=== PATIENT | male | born 1960 | race American Indian/Alaskan Native ===

== ENCOUNTER 2017-06-26 08:56 | Emergency (ER) | payer SELFPAY ==
[2017-06-26 09:04] VITALS: BP 105/60
--- NOTE | 2017-06-26 09:30 | XRay Report ---
RIGHT HAND, 3 views: History: Pain, swelling, injury No comparison. There is normal bone mineralization. A comminuted fracture of the fifth metacarpal neck is identified with 55 degrees anterior angulation. No calcified callus is identified at the fracture site consistent with a relatively acute injury. The remaining bony structures in the right hand are intact. Normal joint spaces. There is diffuse soft tissue swelling. IMPRESSION: Angulated fifth metacarpal neck fracture. Consultation with orthopedics is recommended.
[2017-06-26] MEDS ORDERED: TYLENOL PO ONE (11:02)
--- NOTE | 2017-06-26 11:05 | Emergency Department Report ---
Upper Extremity - HPI Chief Complaint: Extremity Injury, Upper Stated Complaint: RIGHT HAND INJURY Time Seen by Provider: 06/26/17 11:00 Upper Extremity: Right Hand Occurred When: 4 Days Mechanism: Crush Severity: moderate Symptoms: Yes Pain with Movement, Yes Deformity, Yes Limited Range of Movement, Yes Swelling, Yes Bruising/Ecchymosis, No Numbness, No Weakness, No Laceration or Abrasion Other History: 56-year-old male past medical history presents with complaint of right hand pain status post mechanical accident while at home. Patient states she was moving a washing machine tried to lift it and washing machine fell onto his right hand. This occurred 4 days ago. Denies any lacerations or other injuries. Patient states that his right hand is swollen and he has difficulty moving his right pinky finger. Patient is fully lucid denies any head injuries is ambulatory. States he does have sensation in hand. ED Review of Systems ROS: Stated complaint: RIGHT HAND INJURY Other details as noted in HPI Constitutional: denies: chills, fever Eyes: denies: eye pain, eye discharge, vision change ENT: denies: ear pain, throat pain Respiratory: denies: cough, shortness of breath, wheezing Cardiovascular: denies: chest pain, palpitations Endocrine: no symptoms reported Gastrointestinal: denies: abdominal pain, nausea, diarrhea Genitourinary: denies: urgency, dysuria Musculoskeletal: as per HPI. denies: back pain, joint swelling, arthralgia Skin: denies: rash, lesions Neurological: denies: headache, weakness, paresthesias Psychiatric: denies: anxiety, depression Hematological/Lymphatic: denies: easy bleeding, easy bruising ED Past Medical Hx - Past Medical History Previous Medical History?: Yes Hx Diabetes: Yes (borderline) - Surgical History Past Surgical History?: Yes Additional Surgical History: Rotator cuff surgery - Social History Smoking Status: Current Every Day Smoker Substance Use Type: Alcohol - Medications Home Medications: Home Medications Medication Instructions Recorded Confirmed Last Taken Type HYDROcodone/APAP 7.5-325 [[place] 1 each PO Q6HR PRN #20 tablet 10/04/13 Unknown Rx 7.5/325 mg] Ibuprofen [Motrin] 800 mg PO TID PRN #60 tablet 10/04/13 Unknown Rx Ciprofloxacin HCl [Cipro] 500 mg PO Q12H #14 tab 04/13/14 Unknown Rx Ibuprofen [Motrin] 800 mg PO Q8H #30 tablet 04/13/14 Unknown Rx methOCARBAMOL [Robaxin] 500 mg PO BID #30 tab 04/13/14 Unknown Rx traMADol [Ultram 50 MG tab] 50 mg PO Q6HR PRN #20 tablet 04/13/14 Unknown Rx Acetaminophen [Acetaminophen TAB] 500 mg PO Q6HR PRN #25 tablet 06/26/17 Unknown Rx HYDROcodone/APAP 5-325 [[place] 1 each PO Q6HR PRN #15 tablet 06/26/17 Unknown Rx 5/325] Upper Extremity Exam - Exam General: Vital signs noted. No distress. Alert and acting appropriately. Head and Torso: No HEENT Abnormality, No Neck Tenderness, No Chest/Lungs Abnormality, No Abdominal Tenderness, No Back Tenderness Shoulder Exam: Yes Normal Range of Motion in Shoulder, No Shoulder Tenderness, No Clavicle Tenderness, No Shoulder Deformity, No AC Joint Tenderness Arm Exam: No Arm/Humerus Tenderness, No Arm Deformity Elbow: No Elbow Tenderness, No Normal Range of Motion in Elbow, No Elbow Deformity Forearm: No Forearm Tenderness, No Forearm Deformity, No Pain with Pronation, No Pain with Supination Wrist: Yes Normal ROM in Wrist (wrist flexion and extension intact, there is no snuffbox tenderness), No Wrist Tenderness, No Wrist Deformity, No Snuffbox Tenderness, No Pain with Axial Thumb Compression Hand: Yes Hand Tenderness, Yes Normal ROM in Digit(s) (pain at distal fifth metacarpal right hand), No Hand Deformity, No Digit Tenderness, No Digit(s) Deformity, No Tendon Dysfunction CMS Exam: Yes Normal Distal Pulses (distal radial and brachial pulses strong to palpation), Yes Normal Capillary Refill ([place] refill less than one second all finger), Yes Normal Distal Sensation, No Broken Skin Hand L/R Back: 1 - Pain and swelling here ED Course Vital Signs 06/26/17 08:59 Temperature 98.4 F Pulse Rate 76 Respiratory 16 Rate Blood Pressure 105/60 O2 Sat by Pulse 96 Oximetry ED Medical Decision Making - Medical Decision Making A/P: Right distal fifth metacarpal fracture, comminuted 1-case discussed with Dr. Ahn who also reviewed x-ray with me 2-patient placed in ulnar gutter splint and referred to orthopedics. I stressed the importance of follow-up with orthopedics to mitigate any long-term injury to right hand or disability of right hand. Patient stated he understood my instructions 3-follow-up with orthopedics 4- right hand neurovascularly intact. Short course Motrin and [place] when necessary Critical care attestation.: If time is entered above; I have spent that time in minutes in the direct care of this critically ill patient, excluding procedure time. ED Disposition Clinical Impression: Closed right hand fracture Qualifiers: Encounter type: initial encounter Qualified Code(s): S62.91XA - Unspecified fracture of right wrist and hand, initial encounter for closed fracture Disposition: TO HOME OR SELFCARE Is pt being admited?: No Does the pt Need Aspirin: No Condition: Stable Instructions: Hand Fracture (ED), Boxer Fracture (ED) Prescriptions: Acetaminophen [Acetaminophen TAB] 500 mg PO Q6HR PRN #25 tablet PRN Reason: Pain HYDROcodone/APAP 5-325 [[place] 5/325] 1 each PO Q6HR PRN #15 tablet PRN Reason: Pain Referrals: JAVY AUSTIN MD [Staff Physician] - 3-5 Days [facility] [Provider Group] - 3-5 Days Forms: Work/School Release Form(ED) Time of Disposition: 11:05
== END 2017-06-26 11:30 | disposition home or self-care (01) ==
LOC: ED 08:56
DX: S62.91XA Unspecified fracture of right hand, initial encounter for closed fracture (principal); F17.200 Nicotine dependence, unspecified, uncomplicated; X58.XXXA Exposure to other specified factors, initial encounter; Y93.89 Activity, other specified; Y92.89 Other specified places as the place of occurrence of the external cause; Y99.8 Other external cause status

== ENCOUNTER 2019-07-06 17:47 | Emergency (ER) | payer SELFPAY ==
[2019-07-06] MEDS ORDERED: ALBUTEROL 2.5 MG/3 ML NEBU IH ONE ×3 (18:04→19:17)
[2019-07-06] MEDS ORDERED: IPRATROPIUM 0.02% NEBU 2.5 ML IH ONE ×2 (18:04→18:19)
[2019-07-06] MEDS ORDERED: KETOROLAC 30 MG/1 ML INJ IV ONE (19:17)
[2019-07-06] MEDS ORDERED: methylPREDNISolone Sod Succinate 125 MG/2 ML INJ IV ONE (19:17)
[2019-07-06] MEDS ORDERED: EPINEPHrine/PF (1:1,000) 1 MG/1 ML INJ SUB-Q ONE (19:18)
[2019-07-06] MEDS ORDERED: MAGNESIUM SULFATE 2 GM/50 ML BAG IV ONE (19:18)
[2019-07-06] MEDS ORDERED: ACETAMINOPHEN 325 MG TAB PO ONE (19:18)
[2019-07-06] MEDS ORDERED: SODIUM CHLORIDE 0.9% 500 ML 500 ML IV ONE (19:18)
--- NOTE | 2019-07-06 19:19 | Emergency Department Report ---
ED General Adult HPI - General Chief complaint: Dyspnea/Respdistress Stated complaint: COPD Time Seen by Provider: 07/06/19 18:24 Source: patient, RN notes reviewed Mode of arrival: Ambulatory Limitations: No Limitations - History of Present Illness Initial comments: The patient is a 58-year-old gentleman. He is not known to myself previously. He has a history of COPD, diagnosed a few years ago when he was with the [facility]. He is not currently with a [facility] now. He smokes a few cigarettes every week. Down from multiple packs. He presents to the ER today with a complaint of cough, wheezing, shortness of breath, lower back pain. He denies DVT and pulmonary embolism risk factors. He denies fever, and exposure to individuals with confirmed coronavirus. He has aching throbbing paraspinal lower back pain which does not radiate anywhere. There is no complaint of bladder or bowel retention or incontinence, there is no complaint of saddle anesthesia, and there is no complaint of chest pain. Symptoms present for the past few days, constant, do not radiate anywhere, worsened with physical exertion and decreased with rest and with position. -: Gradual, days(s) Severity scale (0 -10): 9 Consistency: other Improves with: other Worsens with: other Associated Symptoms: shortness of breath, weakness, other - Related Data Previous Rx's Medication Instructions Recorded Last Taken Type Ibuprofen [Motrin] 800 mg PO TID PRN #60 tablet 10/04/13 Unknown Rx Ibuprofen [Motrin] 800 mg PO Q8H #30 tablet 04/13/14 Unknown Rx Acetaminophen [Acetaminophen TAB] 500 mg PO Q6HR PRN #25 tablet 06/26/17 Unknown Rx Acetaminophen [Non-Aspirin Extra 500 mg PO Q6HR PRN #30 tablet 07/06/19 Unknown Rx Strength] Albuterol Sulfate [Proair 90 mcg IH Q4HR PRN #2 aer.pow.ba 07/06/19 Unknown Rx Respiclick] DOXYCYCLINE Hyclate [Vibramycin] 100 mg PO Q12HR #10 capsule 07/06/19 Unknown Rx Fluticasone [Flonase] 1 spray NS QDAY #1 bottle 07/06/19 Unknown Rx Ibuprofen [Motrin] 600 mg PO Q8H PRN #30 tablet 07/06/19 Unknown Rx Ipratropium (Nf) [Atrovent] 2 puff IH Q6HR PRN #1 inha 07/06/19 Unknown Rx Nicotine Polacrilex [Nicotine Gum] 4 mg BC QDAY #30 gum 07/06/19 Unknown Rx predniSONE [Deltasone] 40 mg PO QDAY #8 tab 07/06/19 Unknown Rx Allergies Allergy/AdvReac Type Severity Reaction Status Date / Time No Known Allergies Allergy Verified 04/13/14 09:41 ED Review of Systems ROS: Stated complaint: COPD Other details as noted in HPI Constitutional: malaise. denies: fever Eyes: denies: eye discharge ENT: congestion Respiratory: cough, wheezing Cardiovascular: denies: syncope Gastrointestinal: denies: abdominal pain Genitourinary: denies: dysuria Musculoskeletal: back pain, arthralgia, myalgia Skin: as per HPI Neurological: as per HPI, weakness Psychiatric: as per HPI Hematological/Lymphatic: as per HPI ED Past Medical Hx - Past Medical History Hx Diabetes: Yes (borderline) Hx COPD: Yes - Surgical History Additional Surgical History: Rotator cuff surgery - Social History Smoking Status: Current Every Day Smoker Substance Use Type: None - Medications Home Medications: Home Medications Medication Instructions Recorded Confirmed Last Taken Type Ibuprofen [Motrin] 800 mg PO TID PRN #60 tablet 10/04/13 Unknown Rx Ibuprofen [Motrin] 800 mg PO Q8H #30 tablet 04/13/14 Unknown Rx Acetaminophen [Acetaminophen TAB] 500 mg PO Q6HR PRN #25 tablet 06/26/17 Unknown Rx Acetaminophen [Non-Aspirin Extra 500 mg PO Q6HR PRN #30 tablet 07/06/19 Unknown Rx Strength] Albuterol Sulfate [Proair 90 mcg IH Q4HR PRN #2 aer.pow.ba 07/06/19 Unknown Rx Respiclick] DOXYCYCLINE Hyclate [Vibramycin] 100 mg PO Q12HR #10 capsule 07/06/19 Unknown Rx Fluticasone [Flonase] 1 spray NS QDAY #1 bottle 07/06/19 Unknown Rx Ibuprofen [Motrin] 600 mg PO Q8H PRN #30 tablet 07/06/19 Unknown Rx Ipratropium (Nf) [Atrovent] 2 puff IH Q6HR PRN #1 inha 07/06/19 Unknown Rx Nicotine Polacrilex [Nicotine Gum] 4 mg BC QDAY #30 gum 07/06/19 Unknown Rx predniSONE [Deltasone] 40 mg PO QDAY #8 tab 07/06/19 Unknown Rx ED Physical Exam - General Limitations: No Limitations General appearance: alert, anxious, obese - Head Head exam: Present: atraumatic, normocephalic - Eye Eye exam: Present: normal appearance, EOMI. Absent: nystagmus - ENT ENT exam: Present: normal exam, normal orophraynx, mucous membranes moist, normal external ear exam - Neck Neck exam: Present: normal inspection, full ROM. Absent: tenderness, mening ismus - Respiratory Respiratory exam: Present: respiratory distress, wheezes, rhonchi - Cardiovascular Cardiovascular Exam: Present: regular rate, normal rhythm, normal heart sounds. Absent: bradycardia, tachycardia, irregular rhythm, systolic murmur, diastolic murmur, rubs, gallop - GI/Abdominal GI/Abdominal exam: Present: soft, normal bowel sounds. Absent: distended, tenderness, guarding, rebound, rigid, pulsatile mass - Rectal Rectal exam: Present: deferred - Extremities Exam Extremities exam: Present: normal inspection, full ROM, other (2+ pulses noted in the bilateral upper and lower extremities. There is no palpable cord. negative Homans sign. Muscular compartments are soft. The pelvis is stable.). Absent: pedal edema, calf tenderness - Back Exam Back exam: Present: normal inspection, full ROM. Absent: tenderness, CVA tenderness (R), CVA tenderness (L), paraspinal tenderness, vertebral tenderness - Neurological Exam Neurological exam: Present: alert, other (There is no facial droop. The tongue is midline. Extraocular movements are intact bilaterally. There is 5 out of 5 strength in bilateral upper and lower extremities. Sensation is intact to light touch bilateral upper and lower extremities. There is a normal gait.). Absent: motor sensory deficit - Psychiatric Psychiatric exam: Present: anxious - Skin Skin exam: Present: warm, dry, intact, normal color. Absent: rash ED Course Vital Signs 07/06/19 07/06/19 07/06/19 18:38 19:46 20:00 Temperature 98.8 F Pulse Rate 105 H Respiratory 16 Rate Blood Pressure Blood Pressure 113/66 [Left] O2 Sat by Pulse 95 96 97 Oximetry 07/06/19 07/06/19 07/06/19 20:08 20:09 20:30 Temperature Pulse Rate 88 Respiratory 18 18 Rate Blood Pressure 151/70 Blood Pressure [Left] O2 Sat by Pulse 99 Oximetry 07/06/19 21:00 Temperature Pulse Rate 86 Respiratory Rate Blood Pressure 135/74 Blood Pressure [Left] O2 Sat by Pulse 98 Oximetry - Reevaluation(s) Reevaluation #1: 07/06/19 20:06 Differential diagnosis, including but not limited to: Pneumonia, bronchitis, COPD exacerbation Assessment and plan: 58-year-old gentleman who is a sporadic tobacco smoker, with no pulmonary embolism or DVT risk factors, who is low risk by Wells criteria, without known confirmed exposure to coronavirus patients, presenting with cough, wheezing, shortness of breath, likely experiencing COPD exacerbation. He is afebrile with reassuring vital signs and resolved tachycardia. He is counseled to discontinue tobacco consumption, we discussed proper hygiene. We will treat with albuterol, steroids, subcutaneous epinephrine, magnesium sulfate, fluids, and reassess. Reevaluation #2: 07/06/19 21:28 Patient reassessed. Feels much improved. Wheezing resolved. Minimal tachycardia present, likely secondary to albuterol. We discussed proper hand hygiene, self isolation precautions, tobacco cessation, and need for outpatient follow-up. ED Medical Decision Making - Lab Data Vital Signs 07/06/19 18:38 Temperature 98.8 F Pulse Rate 105 H Respiratory 16 Rate Blood Pressure 113/66 [Left] O2 Sat by Pulse 95 Oximetry - EKG Data -: EKG Interpreted by Me - EKG Data 07/06/19 20:07 No prior EKGs available for comparison. Sinus rhythm, 92 bpm, normal axis, QTC within normal limits, left ventricular hypertrophy, normal intervals, borderline atrial enlargement. Not a STEMI. - Radiology Data Radiology results: image reviewed interpreted by me: X-ray of the chest is negative for acute disease Critical Care Time: Yes Critical care time in (mins) excluding proc time.: 35 Critical care attestation.: If time is entered above; I have spent that time in minutes in the direct care of this critically ill patient, excluding procedure time. ED Disposition Clinical Impression: COPD exacerbation Disposition: DC-01 TO HOME OR SELFCARE Is pt being admited?: No Does the pt Need Aspirin: No Condition: Stable Instructions: COVID-19, Chronic Obstructive Pulmonary Disease (ED) Additional Instructions: Wash hands with soap and water often and frequently. Do not touch face, mouth, eyes or nose. Use the medications as needed and directed. Discontinue tobacco consumption. Please continue self isolation as we have discussed. Follow-up with a primary care doctor or high school special education teacher within the next 2 weeks. Return to the emergency room right away with new, worsened or different symptoms, or symptoms not present on the initial emergency room evaluation. Recommend physical activities as tolerated, weight loss as tolerated, avoidance of sugary drinks, simple carbohydrates, recommend consumption of lean protein, fiber, vegetables Prescriptions: Ipratropium (Nf) [Atrovent] 2 puff IH Q6HR PRN #1 inha PRN Reason: Wheezing predniSONE [Deltasone] 40 mg PO QDAY #8 tab Fluticasone [Flonase] 1 spray NS QDAY #1 bottle Ibuprofen [Motrin] 600 mg PO Q8H PRN #30 tablet PRN Reason: Pain Nicotine Polacrilex [Nicotine Gum] 4 mg BC QDAY #30 gum Acetaminophen [Non-Aspirin Extra Strength] 500 mg PO Q6HR PRN #30 tablet PRN Reason: Pain , Severe (7-10) Albuterol Sulfate [Proair Respiclick] 90 mcg IH Q4HR PRN #2 aer.pow.ba PRN Reason: Wheezing DOXYCYCLINE Hyclate [Vibramycin] 100 mg PO Q12HR #10 capsule Referrals: PAUL WONG MD [Staff Physician] - 3-5 Days [facility] [Provider Group] - 3-5 Days [facility] [Provider Group] - 3-5 Days Forms: Work/School Release Form(ED)
[2019-07-06] MEDS ORDERED: SODIUM CHLORIDE 0.9% 1000 ML 1,000 ML ONE (19:34)
--- NOTE | 2019-07-06 20:47 | XRay Report ---
CHEST 2 VIEWS INDICATION / CLINICAL INFORMATION: cough wheezing sob. COMPARISON: None available. FINDINGS: SUPPORT DEVICES: None. HEART / MEDIASTINUM: No significant abnormality. LUNGS / PLEURA: No significant pulmonary or pleural abnormality. No pneumothorax. ADDITIONAL FINDINGS: No significant additional findings. IMPRESSION: No acute finding. Signer Name: Dougie Salomon MD Signed: 07/06/2019 8:42 PM Workstation Name: [id number]
[2019-07-06 21:28] VITALS: BP 135/74
== END 2019-07-06 22:05 | disposition home or self-care (01) ==
LOC: ED 17:47
DX: J44.1 Chronic obstructive pulmonary disease with (acute) exacerbation (principal); F17.210 Nicotine dependence, cigarettes, uncomplicated; E11.9 Type 2 diabetes mellitus without complications; Z79.899 Other long term (current) drug therapy
CPT/HCPCS: 71046; 93005; 93010; 94640; 96365; 96372; 96375; 99284; J0171; J1885; J2930; J3475; J7030; 94644; J7040

== ENCOUNTER 2020-02-22 15:21 | Emergency (ER) | payer SELFPAY ==
[2020-02-22 15:35] VITALS: BP 100/67
[2020-02-22] MEDS ORDERED: IPRATROPIUM/ALBUTEROL SULFATE 3 ML AMPUL.NEB IH ONE (17:36)
--- NOTE | 2020-02-22 17:36 | Event Note ---
ED Screening Note ED Screening Note: 59-year-old male presents emerged department complaining of a 4-day history of progressive worsening shortness of breath associated with cough and also sensation of a prostate flareup of having obstructive pain to the lower pelvic area. Reports no hemoptysis no hematemesis no hematochezia. This initial assessment/diagnostic orders/clinical plan/treatment(s) is/are subject to change based on patients health status, clinical progression and re- assessment by fellow clinical providers in the ED. Further treatment and workup at subsequent clinical providers discretion. Patient/guardian urged not to elope from the ED as their condition may be serious if not clinically assessed and managed. Initial orders include: Urinalysis, chest x-ray, albuterol treatment with steroids
[2020-02-22] MEDS ORDERED: predniSONE 50 MG TAB PO STA (17:37)
--- NOTE | 2020-02-22 18:06 | XRay Report ---
CHEST 2 VIEWS INDICATION: cough and sob. COMPARISON: 07/06/2019 FINDINGS: Support devices: None. Heart: Within normal limits. Lungs/Pleura: No acute air space or interstitial disease. No significant pleural effusion. IMPRESSION: No acute findings. Signer Name: Kal Shabazz MD Signed: 02/22/2020 6:01 PM Workstation Name: [id number]
--- NOTE | 2020-02-22 18:54 | Emergency Department Report ---
ED General Adult HPI - General Chief complaint: Abdominal Pain Stated complaint: AICHA, BACK PAIN, PROSTATE HURTS Time Seen by Provider: 02/22/20 18:44 Source: patient Mode of arrival: Ambulatory Limitations: No Limitations - History of Present Illness Initial comments: Pt is a 59-year-old male presents emerged department complaining of a 4-day history of COPD, progressive worsening shortness of breath associated with cough and also sensation of a prostate flareup of having obstructive pain to the lower pelvic area. Reports no hemoptysis no hematemesis no hematochezia. does endorses dysyria , frequency and urgency. pt denies fever or chills, no n/v, pain of 4/10 radiating from bilat flank, radiating to superpubic. Severity scale (0 -10): 6 - Related Data Previous Rx's Medication Instructions Recorded Last Taken Type Ibuprofen [Motrin] 800 mg PO TID PRN #60 tablet 10/04/13 Unknown Rx Ibuprofen [Motrin] 800 mg PO Q8H #30 tablet 04/13/14 Unknown Rx Acetaminophen [Acetaminophen TAB] 500 mg PO Q6HR PRN #25 tablet 06/26/17 Unknown Rx Acetaminophen [Non-Aspirin Extra 500 mg PO Q6HR PRN #30 tablet 07/06/19 Unknown Rx Strength] Albuterol Sulfate [Proair 90 mcg IH Q4HR PRN #2 aer.pow.[email or web address] 07/06/19 Unknown Rx Respiclick] DOXYCYCLINE Hyclate [Vibramycin] 100 mg PO Q12HR #10 capsule 07/06/19 Unknown Rx Fluticasone [Flonase] 1 spray NS QDAY #1 bottle 07/06/19 Unknown Rx Ibuprofen [Motrin] 600 mg PO Q8H PRN #30 tablet 07/06/19 Unknown Rx Ipratropium (Nf) [Atrovent] 2 puff IH Q6HR PRN #1 inha 07/06/19 Unknown Rx Nicotine Polacrilex [Nicotine Gum] 4 mg BC QDAY #30 gum 07/06/19 Unknown Rx predniSONE [Deltasone] 40 mg PO QDAY #8 tab 07/06/19 Unknown Rx Albuterol Mdi (or & Nicu Only) 2 puff IH QID PRN #8.5 gram 02/22/20 Unknown Rx [ProAir HFA Inhaler] levoFLOXacin [Levaquin TAB] 500 mg PO QDAY 10 Days #10 tablet 02/22/20 Unknown R x predniSONE [Deltasone] 40 mg PO QDAY 5 Days #10 tab 02/22/20 Unknown Rx Allergies Allergy/AdvReac Type Severity Reaction Status Date / Time No Known Allergies Allergy Verified 04/13/14 09:41 ED Review of Systems ROS: Stated complaint: AICHA, BACK PAIN, PROSTATE HURTS Other details as noted in HPI Constitutional: denies: chills, fever Eyes: denies: eye pain, eye discharge, vision change ENT: denies: ear pain, throat pain Respiratory: cough, shortness of breath, wheezing Cardiovascular: denies: chest pain, palpitations Endocrine: no symptoms reported Gastrointestinal: denies: abdominal pain, nausea, vomiting, diarrhea Genitourinary: urgency, dysuria, frequency. denies: hematuria, discharge, testicular pain, testicular mass Musculoskeletal: back pain (bilat flank pain ) Skin: denies: rash, lesions Neurological: denies: headache, weakness, paresthesias Psychiatric: denies: anxiety, depression Hematological/Lymphatic: denies: easy bleeding, easy bruising ED Past Medical Hx - Past Medical History Previous Medical History?: Yes Hx Diabetes: Yes (borderline) Hx COPD: Yes - Surgical History Past Surgical History?: Yes Additional Surgical History: Rotator cuff surgery - Social History Smoking Status: Current Every Day Smoker Substance Use Type: None - Medications Home Medications: Home Medications Medication Instructions Recorded Confirmed Last Taken Type Ibuprofen [Motrin] 800 mg PO TID PRN #60 tablet 10/04/13 Unknown Rx Ibuprofen [Motrin] 800 mg PO Q8H #30 tablet 04/13/14 Unknown Rx Acetaminophen [Acetaminophen TAB] 500 mg PO Q6HR PRN #25 tablet 06/26/17 Unknown Rx Acetaminophen [Non-Aspirin Extra 500 mg PO Q6HR PRN #30 tablet 07/06/19 Unknown Rx Strength] Albuterol Sulfate [Proair 90 mcg IH Q4HR PRN #2 aer.pow.ba 07/06/19 Unknown Rx Respiclick] DOXYCYCLINE Hyclate [Vibramycin] 100 mg PO Q12HR #10 capsule 07/06/19 Unknown Rx Fluticasone [Flonase] 1 spray NS QDAY #1 bottle 07/06/19 Unknown Rx Ibuprofen [Motrin] 600 mg PO Q8H PRN #30 tablet 07/06/19 Unknown Rx Ipratropium (Nf) [Atrovent] 2 puff IH Q6HR PRN #1 inha 07/06/19 Unknown Rx Nicotine Polacrilex [Nicotine Gum] 4 mg BC QDAY #30 gum 07/06/19 Unknown Rx predniSONE [Deltasone] 40 mg PO QDAY #8 tab 07/06/19 Unknown Rx Albuterol Mdi (or & Nicu Only) 2 puff IH QID PRN #8.5 gram 02/22/20 Unknown Rx [ProAir HFA Inhaler] levoFLOXacin [Levaquin TAB] 500 mg PO QDAY 10 Days #10 tablet 02/22/20 Unknown Rx predniSONE [Deltasone] 40 mg PO QDAY 5 Days #10 tab 02/22/20 Unknown Rx ED Physical Exam - General Limitations: No Limitations General appearance: alert, in no apparent distress - Head Head exam: Present: atraumatic, normocephalic - Eye Eye exam: Present: normal appearance, EOMI Pupils: Present: normal accommodation - ENT ENT exam: Present: mucous membranes moist - Neck Neck exam: Present: normal inspection, full ROM - Respiratory Respiratory exam: Present: normal lung sounds bilaterally. Absent: respiratory distress, wheezes, stridor, chest wall tenderness - Cardiovascular Cardiovascular Exam: Present: regular rate, normal rhythm, normal heart sounds. Absent: systolic murmur, diastolic murmur, rubs, gallop - GI/Abdominal GI/Abdominal exam: Present: soft, tenderness (right flank), normal bowel sounds. Absent: distended, guarding, rebound, rigid, bruit, hernia - Rectal Rectal exam: Present: deferred - Extremities Exam Extremities exam: Present: normal inspection, full ROM. Absent: tenderness - Back Exam Back exam: Present: normal inspection, full ROM, CVA tenderness (R). Absent: tenderness, CVA tenderness (L), vertebral tenderness - Neurological Exam Neurological exam: Present: alert, oriented X3, CN II-XII intact, normal gait, reflexes normal - Psychiatric Psychiatric exam: Present: normal affect, normal mood - Skin Skin exam: Present: warm, dry, intact, normal color. Absent: rash ED Course Vital Signs 02/22/20 15:29 Temperature 97.9 F Pulse Rate 77 Respiratory 16 Rate Blood Pressure 100/67 [Right] O2 Sat by Pulse 96 Oximetry ED Medical Decision Making - Lab Data Result diagrams: 02/22/20 18:50 02/22/20 18:50 Labs 02/22/20 02/22/20 02/22/20 18:50 18:50 20:26 WBC 6.2 RBC 4.72 Hgb 14.9 Hct 44.1 MCV 94 MCH 32 MCHC 34 RDW 14.2 Plt Count 212 Lymph % (Auto) 36.0 H [place] % (Auto) 6.4 Eos % (Auto) 1.4 Baso % (Auto) 0.5 Lymph # (Auto) 2.2 [place] # (Auto) 0.4 Eos # (Auto) 0.1 Baso # (Auto) 0.0 Seg Neutrophils % 55.7 Seg Neutrophils # 3.4 Sodium 138 Potassium 4.3 Chloride 101.4 Carbon Dioxide 28 Anion Gap 13 BUN 15 Creatinine 1.0 Estimated GFR > 60 BUN/Creatinine Ratio 15 Glucose 107 H Calcium 9.7 Total Bilirubin 0.40 AST 18 ALT 19 Alkaline Phosphatase 54 Total Protein 6.3 Albumin 4.1 Albumin/Globulin Ratio 1.9 Urine Color Straw Urine Turbidity Clear Urine pH 6.[address] [place] 1.011 Urine Protein <15 mg/dl Urine Glucose (UA) Neg Urine Ketones Neg Urine Blood Neg Urine Nitrite Neg Urine Bilirubin Neg Urine Urobilinogen < 2.0 Ur Leukocyte Esterase Sm Urine WBC (Auto) 8.0 H Urine RBC (Auto) 9.0 U Epithel Cells (Auto) < 1.0 Urine Bacteria (Auto) 1+ Urine Mucus Few - Radiology Data Radiology results: report reviewed, image reviewed interpreted by me: Findings Reporting MD: Vikram Brewster Dictation Time: February 22, 2020 19:25 Machine Design Checker: Not available Travel Pta Date: CT ABDOMEN PELVIS WITHOUT CONTRAST INDICATION / CLINICAL INFORMATION: flank pain dysuria. TECHNIQUE: Axial CT images were obtained through the abdomen and pelvis without IV contrast. All CT scans at this location are performed using CT dose reduction for ALARA by means of automated exposure control. COMPARISON: None available. FINDINGS: LOWER CHEST: No significant abnormality. LIVER: No significant abnormality. GALLBLADDER: No significant abnormality. BILE DUCTS: No significant abnormality. PANCREAS: No significant abnormality. SPLEEN: No significant abnormality. ADRENALS: No significant abnormality. RIGHT KIDNEY and URETER: No significant abnormality. LEFT KIDNEY and URETER: No significant abnormality. STOMACH and SMALL BOWEL: No significant abnormality. COLON: No significant abnormality. APPENDIX: No significant abnormality. PERITONEUM: No free fluid. No free air. No fluid collection. LYMPH NODES: No significant adenopathy. AORTA and ARTERIES: No significant abnormality. IVC and VEINS: No significant abnormality. URINARY BLADDER: Bladder wall thickening is present.. Fluid collection adjacent to the urinary bladder measuring 4.4 cm is present questionable bladder diverticulum REPRODUCTIVE ORGANS: No significant abnormality. Several dystrophic prostate calcifications are present ADDITIONAL FINDINGS: None. SKELETAL SYSTEM: No significant abnormality. IMPRESSION: 1. Fluid-filled structure adjacent to the urinary bladder with associated bladder wall thickening, diverticulum is a concern Signer Name: Vikram Brewster MD Signed: 02/22/2020 7:25 PM Findings Reporting MD: Kal Shabazz Dictation Time: February 22, 2020 17:01 Machine Design Checker: Not available Travel Pta Date: CHEST 2 VIEWS INDICATION: cough and sob. COMPARISON: 07/06/2019 FINDINGS: Support devices: None. Heart: Within normal limits. Lungs/Pleura: No acute air space or interstitial disease. No significant pleural effusion. IMPRESSION: No acute findings. Signer Name: Kal Shabazz MD Signed: 02/22/2020 5:01 PM Workstation Name: [id number] - Medical Decision Making cxr: normal, no infiltrates no opacities, CT abd pelvis: Fluid-filled structure adjacent to the urinary bladder with associated bladder wall thickening, diverticulum is a concern, there is no fever , chills, pt is tolerating po without n/v, plan: refill albuterol, prednisone, levaquin po, follow up with pcp Dr Sow in 2-3 days. Follow up with urology in 2-3 days reference: urinary symptoms , and possible bladder mass. pt verbalized agreement and understanding of same. pt dc'd to self with rx. Critical care attestation.: If time is entered above; I have spent that time in minutes in the direct care of this critically ill patient, excluding procedure time. ED Disposition Clinical Impression: UTI (urinary tract infection) Qualifiers: Urinary tract infection type: acute cystitis Hematuria presence: without hematuria Qualified Code(s): N30.00 - Acute cystitis without hematuria COPD (chronic obstructive pulmonary disease) Qualifiers: COPD type: chronic bronchitis Chronic bronchitis type: simple Qualified Code(s): J41.0 - Simple chronic bronchitis Disposition: DC-01 TO HOME OR SELFCARE Is pt being admited?: No Does the pt Need Aspirin: No Condition: Stable Instructions: Chronic Obstructive Pulmonary Disease (ED) Prescriptions: predniSONE [Deltasone] 40 mg PO QDAY 5 Days #10 tab levoFLOXacin [Levaquin TAB] 500 mg PO QDAY 10 Days #10 tablet Albuterol Mdi (or & Nicu Only) [ProAir HFA Inhaler] 2 puff IH QID PRN #8.5 gram PRN Reason: Shortness Of Breath Referrals: ZAN DESIR MD [Staff Physician] - 3-5 Days MARLON GARCIA MD [Staff Physician] - 3-5 Days Forms: Work/School Release Form(ED) Time of Disposition: 21:14
[2020-02-22 19:17] LABS: Basophils % (Auto) 0.5 % (0.0-1.8); Eosinophils # (Auto) 0.1 K/mm3 (0.0-0.4); Eosinophils % (Auto) 1.4 % (0.0-4.3); Hematocrit 44.1 % (35.5-45.6); Hemoglobin 14.9 gm/dl (11.8-15.2); Lymphocytes # (Auto) 2.2 K/mm3 (1.2-5.4); Mean Corpuscular HGB Conc 34 % (32-34); Mean Corpuscular Volume 94 fl (84-94); Monocytes # (Auto) 0.4 K/mm3 (0.0-0.8); Monocytes % (Auto) 6.4 % (0.0-7.3); Platelet Count 212 K/mm3 (140-440); Red Blood Count 4.72 M/mm3 (3.65-5.03); Red Cell Distribution Width 14.2 % (13.2-15.2)
[2020-02-22 19:35] LABS: Alanine Aminotransferase 19 units/L (7-56); Albumin 4.1 g/dL (3.9-5); BUN/Creatinine Ratio 15; Blood Urea Nitrogen 15 mg/dL (9-20); Calcium 9.7 mg/dL (8.4-10.2); Hemolysis Index 15
--- NOTE | 2020-02-22 20:30 | Cat Scan Report ---
CT ABDOMEN PELVIS WITHOUT CONTRAST INDICATION / CLINICAL INFORMATION: flank pain dysuria. TECHNIQUE: Axial CT images were obtained through the abdomen and pelvis without IV contrast. All CT scans at [facility] location are performed using CT dose reduction for ALARA by means of automated exposure control. COMPARISON: None available. FINDINGS: LOWER CHEST: No significant abnormality. LIVER: No significant abnormality. GALLBLADDER: No significant abnormality. BILE DUCTS: No significant abnormality. PANCREAS: No significant abnormality. SPLEEN: No significant abnormality. ADRENALS: No significant abnormality. RIGHT KIDNEY and URETER: No significant abnormality. LEFT KIDNEY and URETER: No significant abnormality. STOMACH and SMALL BOWEL: No significant abnormality. COLON: No significant abnormality. APPENDIX: No significant abnormality. PERITONEUM: No free fluid. No free air. No fluid collection. LYMPH NODES: No significant adenopathy. AORTA and ARTERIES: No significant abnormality. IVC and VEINS: No significant abnormality. URINARY BLADDER: Bladder wall thickening is present.. Fluid collection adjacent to the urinary bladde r measuring 4.4 cm is present questionable bladder diverticulum REPRODUCTIVE ORGANS: No significant abnormality. Several dystrophic prostate calcifications are prese nt ADDITIONAL FINDINGS: None. SKELETAL SYSTEM: No significant abnormality. IMPRESSION: 1. Fluid-filled structure adjacent to the urinary bladder with associated bladder wall thickening, di verticulum is a concern Signer Name: Vikram Brewster MD Signed: 02/22/2020 8:25 PM Workstation Name: [id number]
[2020-02-22 20:44] LABS: Bacteria,Urine 1+ /HPF (Negative); Bilirubin,Urine NEG (Negative); Blood,Urine NEG (Negative); Color,Urine Straw (Yellow); Mucus,Urine FEW /HPF; Protein,Urine <15 mg/dL mg/dL (Negative); Urobilinogen,Urine < 2.0 mg/dL (<2.0)
== END 2020-02-22 21:26 | disposition home or self-care (01) ==
LOC: ED 15:21
DX: J44.1 Chronic obstructive pulmonary disease with (acute) exacerbation (principal); N39.0 Urinary tract infection, site not specified
CPT/HCPCS: 36415; 71046; 74176; 80053; 81001; 85025; 99284; J7512